=== PATIENT | female | born 2000 | race Two or more races ===

== ENCOUNTER 2025-02-21 22:01 | Emergency (ER) | payer MEDICAID, SELFPAY ==
[2025-02-21 22:02] VITALS: BMI 33.5
[2025-02-21 23:04] VITALS: BP 144/96; PULSE 100; RESP 18; TEMP 36.6; O2SAT 98
[2025-02-21] MEDS: SUMAtriptan 25 MG TABLET PO (23:54)
[2025-02-21] MEDS: METOCLOPRAMIDE 5 MG TABLET 10 MG PO (23:55)
--- NOTE | 2025-02-22 00:19 | EDNOTE_ITS ---
ED Headache RME/HPI General Chief Complaint: Nausea/Vomiting/Diarrhea Stated Complaint: VOMITING AFTER TAKING MIGRAINE MEDICATION Time Seen by Provider: 02/21/25 23:26 Arrival date/time: 02/21/25 22:01 24F with history of migraines presents to ED with N/V after taking Nurtec for the first time. Patient has been on Imitrex until recent switch. Patient still has a VILLA. N/V has improved prior to arrival in ED. Limitations: no limitations Related Data Previous Rx's ?Medication ?Instructions ?Recorded ondansetron 4 mg disintegrating 4 mg PO Q8H PRN nausea and 07/15/24 tablet vomiting #30 tabs Allergies Allergy/AdvReac Type Severity Reaction Status Date / Time No Known Allergies Allergy Verified 04/19/21 22:52 Review of Systems Review of Systems Systems Reviewed: All systems reviewed, normal except as documented Constitutional Constitutional: Reports system reviewed and no additional complaints, except as documented, Reports as per HPI, Denies fever(s) and Reports headache(s) ENT Ears, Nose, Mouth, and Throat: Denies disequilibrium and Reports headache(s) Cardiovascular Cardiovascular: Reports system reviewed and no additional complaints, except as documented, Denies chest pain and Denies dyspnea Respiratory Respiratory: Reports system reviewed and no additional complaints, except as documented, Denies cough and Denies dyspnea Gastrointestinal Gastrointestinal: Reports system reviewed and no additional complaints, except as documented, Reports as per HPI, Denies abdominal pain, Reports nausea and Reports vomiting Neurologic Neurologic: Reports system reviewed and no additional complaints, except as documented, Denies confusion, Denies disequilibrium and Reports headache(s) Psychiatric Psychiatric: Denies confusion Past Medical History Social History SMOKING STATUS: Never smoker ED Exam General Limitations: Present no limitations General appearance: Present alert and in no apparent distress Head Head exam: Present atraumatic Eye Eye exam: Present normal appearance, PERRL and EOMI ENT ENT exam: Present normal exam, normal oropharynx and mucous membranes moist Neck Neck exam: Present normal inspection, full ROM and trachea midline Chest Chest inspection: Present normal inspection and symmetric chest wall rise Respiratory Respiratory exam: Present normal lung sounds bilaterally Cardiovascular Cardiovascular exam: Present regular rate, normal rhythm and normal heart sounds Abdominal Exam Abdominal exam: Present soft and normal bowel sounds Extremities Exam Extremities exam: Present normal inspection and full ROM Back Exam Back exam: Present normal inspection and full ROM Neurological Exam Neurological exam: Present alert, oriented X3 and CN II-XII intact Psychiatric Psychiatric exam: Present normal affect and normal mood Skin Skin exam: Present warm, dry, intact and normal color Course Quality Measures none Orders Category Date Time Status Metoclopramide [Reglan] Med 02/21/25 23:26 Discontinued 10 mg PO X1 ONE SUMAtriptan [Imitrex] Med 02/21/25 23:27 Discontinued 25 mg PO X1 ONE Vital Signs Vital signs: Vital Signs Temperature 98 F 02/21/25 23:04 Pulse Rate 100 02/21/25 23:04 Respiratory Rate 18 02/21/25 23:04 Blood Pressure 144/96 H 02/21/25 23:04 Pulse Oximetry (%) 98 02/21/25 23:04 Oxygen Delivery Method Room Air 02/21/25 23:04 O2 at 98% on RA and WNLs Headache MDM Narrative MDM Narrative:: 24F with history of migraines presents to ED with N/V after taking Nurtec for the first time. Patient has been on Imitrex until recent switch. Patient still has a VILLA. N/V has improved prior to arrival in ED. Physical exam reveals normal pupil response and EOM. Gait normal. Patient is afebrile, calm, and alert. Patient eloped prior to DC. Patient data External records reviewed:: [facility] previous records Clinical information provided by:: patient Social determinants that could affect healthcare access:: none Patient has the following chronic illnesses:: none How is presenting disease/condition affected by chronic disease/condition?: no chronic disease Evaluation data The following diagnostics were reviewed and interpreted by me:: other (specify) (none) Lab and/or radiology exams considered but not ordered:: not ordered Interpretation Summary: n/a Medications / Prescriptions Medications or Prescriptions considered but not ordered:: ordered Medication administrations:: Medication Administration History Discontinued Medications Metoclopramide HCl (Metoclopramide 5 Mg Tablet) 10 mg PO X1 ONE Stop: 02/21/25 23:27 Last Admin: 02/21/25 23:55 Dose: 10 mg Documented By: ROBERTA Sumatriptan Succinate (Sumatriptan 25 Mg Tablet) 25 mg PO X1 ONE Stop: 02/21/25 23:28 Last Admin: 02/21/25 23:54 Dose: 25 mg Documented By: ROBERTA above Consultations Consultation(s) initiated? (list below): No Diagnosis Differential diagnosis headache: migraine, tension headache, subarachnoid hemorrhage, headache, meningitis, sinusitis, postconcussion syndrome and other (drug adverse effect) Most likely diagnosis given after review of the tests above:: drug adverse effect Admission Indicated Admission indicated?: not indicated Admission Request Was there a request for admission?: No Disposition Plan Disposition Plan: other (specify) (eloped) Discharge Plan Plan Patient Disposition: Elopement Prescriptions/Referrals Prescriptions/Med Rec: No Action ondansetron 4 mg tablet,disintegrating 4 mg PO Q8H PRN (Reason: nausea and vomiting) Qty: 30 0RF Referrals: Marianne Carney PA-C [Primary Care Provider] - In 1 week Problem List Clinical Impression: Adverse drug effect Patient/Caregiver Discharge Instructions Print Language: Setswana JAZZ/AUBREY Supervising Physician JAZZ/AUBREY Supervising Physician: Dr. Greene
--- NOTE | 2025-02-22 01:15 | PC.NURSE ---
patient eloped at 0030. notified provider.
== END 2025-02-22 04:36 | disposition left against medical advice (07) ==
PROVIDERS: Emergency Provider Emergency Medicine; PCP Physician Assistant Medical
DX: R11.2 Nausea with vomiting, unspecified (principal); Z53.29 Procedure and treatment not carried out because of patient's decision for other reasons
CPT/HCPCS: 99281; A9270